=== PATIENT | male | born 1970 | race Caucasian/White ===

== ENCOUNTER 2019-02-15 15:58 | Inpatient (IN) | payer MEDICAID ==
[~2019-02-15] VITALS: Ht 165.1 cm; Wt 65.8 kg
[2019-02-15] MEDS ORDERED: SODIUM CHLORIDE 0.9% 1,000 ML IV ONE (20:35)
[2019-02-15] MEDS ORDERED: MORPHINE SULFATE 4 MG/ML CPJ (NOT FOR IM USE) IV STA (20:35)
[2019-02-15] MEDS ORDERED: ONDANSETRON HCL 4MG/2ML INJ IV STA (20:35)
[2019-02-15] MEDS ORDERED: PIPERACILLIN/TAZ 3.375G PREMIX 50 ML IV NR (20:43)
[2019-02-15] MEDS ORDERED: PIPERACILLIN/TAZOBACTAM 3.375GM/50ML PREMIX IV ONE (20:45)
[2019-02-15] MEDS ORDERED: VANCOMYCIN 1 G PREMIX 200 ML IV SCH (20:45)
[2019-02-15 21:30] LABS: BASOPHILS % 1.5 % (0.0-2.0); EOSINOPHILS % 1.1 % (0.0-5.0); HEMATOCRIT. 37.6 % (42.0-52.0); HEMOGLOBIN. 12.6 g/dL (14.0-18.0); LYMPHOCYTES % 43.2 % (20.0-50.0); MEAN CORPUSCULAR HEMOGLOBIN 30.6 pg (28.0-32.0); MEAN CORPUSCULAR VOLUME 91.3 fL (80.0-94.0); MEAN PLATELET VOLUME 8.1 fl (7.4-10.4); MONOCYTES % 13.9 % (2.0-8.0); NEUTROPHILS % 40.3 % (40.0-76.0); PLATELET 67 x1000/uL (130-400); RED BLOOD CELL COUNT 4.12 mill/uL (4.7-6.1); RED CELL DISTRIBUTION WIDTH 18.4 % (11.6-14.6)
[2019-02-15 21:32] LABS: CHLORIDE 103 mEq/L (98-107)
[2019-02-15] MEDS ORDERED: IBUPROFEN 600MG TABLET PO PRN (22:45)
[2019-02-15] MEDS ORDERED: ONDANSETRON HCL 4MG/2ML INJ IV PRN (23:00)
[2019-02-15] MEDS ORDERED: CLONIDINE 0.1MG TABLET PO PRN (23:00)
[2019-02-15] MEDS ORDERED: LORAZEPAM 2MG/ML CPJ IV PRN (23:00)
[2019-02-15] MEDS ORDERED: MAGNESIUM/ALUMINUM HYDROXIDE/SIMETHICONE 30ML UDC PO PRN (23:00)
[2019-02-15] MEDS ORDERED: ACETAMINOPHEN 325MG TABLET PO PRN (23:00)
[2019-02-15] MEDS ORDERED: DOCUSATE SODIUM 100MG CAPSULE PO PRN (23:00)
[2019-02-15] MEDS ORDERED: IPRATROPIUM/ALBUTEROL 0.5-3(2.5)MG/3ML NEB INH PRN (23:00)
[2019-02-15] MEDS ORDERED: DIPHENHYDRAMINE 50MG/ML VIAL IV PRN (23:00)
[2019-02-15] MEDS ORDERED: PIPERACILLIN/TAZ 3.375G PREMIX 50 ML IV SCH (23:00)
[2019-02-15] MEDS ORDERED: HYDRALAZINE 20MG/ML VIAL IV PRN (23:00)
[2019-02-15] MEDS ORDERED: GUAIFENESIN 200MG/10ML SUGAR FREE UDC PO PRN (23:00)
[2019-02-15] MEDS ORDERED: ENOXAPARIN 40MG/0.4ML SYR SUBCUT SCH (23:00)
[2019-02-15] MEDS ORDERED: IOHEXOL-300 100 ML BOTTLE ONE (23:20)
[2019-02-15 23:33] LABS: CLARITY URINE CLEAR (CLEAR); COLOR URINE YELLOW (YELLOW); KETONES URINE NEGATIVE (NEGATIVE); LEUKOCYTE ESTERASE URINE NEGATIVE (NEGATIVE); NITRITE URINE NEGATIVE (NEGATIVE); OCCULT BLOOD URINE NEGATIVE (NEGATIVE); PROTEIN URINE NEGATIVE (NEGATIVE); SPECIFIC GRAVITY URINE 1.027 (1.005-1.030); UROBILINOGEN URINE 0.2 E.U./dL (0.2-1.0)
[2019-02-15] MEDS ORDERED: HYDROCODONE/ACETAMINOPHEN 10/325MG TABLET PO PRN (23:35)
[2019-02-15] MEDS ORDERED: HYDROMORPHONE HCL/PF 2MG/ML CPJ IV PRN (23:45)
[2019-02-16 00:53] VITALS: BP 133/88
[2019-02-16 04:00] VITALS: BP 126/76
[2019-02-16] MEDS: SODIUM CHLORIDE 0.9% INJ 3ML FLUSH IVF SCH ×3 (06:34→22:00)
[2019-02-16 07:45] LABS: HEMATOCRIT. 34.6 % (42.0-52.0); HEMOGLOBIN. 11.4 g/dL (14.0-18.0); MEAN CORPUSCULAR HEMOGLOBIN 30.3 pg (28.0-32.0); MEAN CORPUSCULAR VOLUME 92.4 fL (80.0-94.0); MEAN PLATELET VOLUME 8.7 fl (7.4-10.4); PLATELET 58 x1000/uL (130-400); RED BLOOD CELL COUNT 3.75 mill/uL (4.7-6.1); RED CELL DISTRIBUTION WIDTH 18.6 % (11.6-14.6)
[2019-02-16 07:58] LABS: CHLORIDE 106 mEq/L (98-107)
[2019-02-16 08:00] VITALS: BP_SYST 124; BP_SYST 138; BP_DIAS 60; BP_DIAS 83
[2019-02-16] MEDS ORDERED: NA PHOS,M-B/NA PHOS,DI-BA ENEMA 118ML PR PRN (09:00)
[2019-02-16] MEDS: VANCOMYCIN 1 G PREMIX 200 ML IV SCH ×2 (09:00→16:50)
[2019-02-16] MEDS: PIPERACILLIN/TAZ 3.375G PREMIX 50 ML IV SCH ×2 (09:19→15:33)
[2019-02-16 09:29] LABS: PLATELET ESTIMATE MARKEDLY DECREASED
[2019-02-16 12:00] VITALS: BP_SYST 128; BP_SYST 139; BP_DIAS 64; BP_DIAS 77
[2019-02-16 16:00] VITALS: BP_SYST 123; BP_SYST 130; BP_DIAS 68; BP_DIAS 77
[2019-02-16 20:00] VITALS: BP 139/80
[2019-02-17] MEDS: PIPERACILLIN/TAZ 3.375G PREMIX 50 ML IV SCH ×3 (00:03→16:56)
[2019-02-17] MEDS: VANCOMYCIN 1 G PREMIX 200 ML IV SCH ×2 (01:08→09:52)
[2019-02-17 04:00] VITALS: BP 128/82
[2019-02-17] MEDS: SODIUM CHLORIDE 0.9% INJ 3ML FLUSH IVF SCH ×3 (06:26→22:08)
[2019-02-17 08:00] VITALS: BP 141/81
[2019-02-17 12:30] VITALS: BP 159/102
[2019-02-17 15:47] VITALS: BP 156/102
[2019-02-17 20:00] VITALS: BP 152/87
[2019-02-17] MEDS: VANCOMYCIN 1250MG in DEXTROSE 5% WATER 250ML IV SCH (22:00)
[2019-02-18] VITALS: BP 129/88
[2019-02-18] MEDS: PIPERACILLIN/TAZ 3.375G PREMIX 50 ML IV SCH ×2 (00:35→08:44)
[2019-02-18 04:00] VITALS: BP 142/90
[2019-02-18] MEDS: SODIUM CHLORIDE 0.9% INJ 3ML FLUSH IVF SCH (05:32)
[2019-02-18 08:00] VITALS: BP_SYST 132; BP_SYST 153; BP_DIAS 102; BP_DIAS 88
[2019-02-18] MEDS: VANCOMYCIN 1250MG in DEXTROSE 5% WATER 250ML IV SCH (09:13)
[2019-02-18 12:00] VITALS: BP 132/88
[2019-02-18 14:01] VITALS: BP 128/78
== END 2019-02-18 14:20 | disposition home or self-care (01) | DRG 501 ==
LOC: ER 15:58 → 6EST 22:37 → EDBEDREQ 22:41 → EDBEDREQTM 22:41 → ENRESERV 23:19
PROVIDERS: ADMIT Internal Medicine; ATTEND Internal Medicine
DX: N49.2 Inflammatory disorders of scrotum (principal); F10.10 Alcohol abuse, uncomplicated; G89.29 Other chronic pain; Z59.0 Homelessness
CPT/HCPCS: 36415; 74177; 80202; 96374; 96375; 99285; J1170; J2270; J2405; J2543; J3370; J7030; J7060; Q9967

== ENCOUNTER 2020-11-08 14:40 | Emergency (ER) | payer MEDICAID ==
[~2020-11-08] VITALS: Ht 177.8 cm; Wt 73.0 kg
[2020-11-08 15:47] LABS: CHLORIDE 97 mEq/L (98-107)
[2020-11-08 16:01] LABS: HEMATOCRIT. 27.2 % (42.0-52.0); HEMOGLOBIN. 8.5 g/dL (14.0-18.0); MEAN CORPUSCULAR HEMOGLOBIN 22.8 pg (28.0-32.0); MEAN CORPUSCULAR VOLUME 73.2 fL (80.0-94.0); MEAN PLATELET VOLUME 8.7 fl (7.4-10.4); PLATELET 290 x1000/uL (130-400); RED BLOOD CELL COUNT 3.72 mill/uL (4.7-6.1); RED CELL DISTRIBUTION WIDTH 19.6 % (11.6-14.6)
[2020-11-08 16:54] LABS: PLATELET ESTIMATE NORMAL
[2020-11-08 23:05] VITALS: BP 139/74
== END 2020-11-08 23:25 | disposition home or self-care (01) ==
LOC: ER 14:40
DX: D64.9 Anemia, unspecified (principal); F10.10 Alcohol abuse, uncomplicated; Y90.9 Presence of alcohol in blood, level not specified
CPT/HCPCS: 36415; 80053; 85025; 93005; 99284

== ENCOUNTER 2024-12-14 08:33 | Emergency (ER) | payer OTHER, MEDICAID ==
[~2024-12-14] VITALS: Ht 157.5 cm; Wt 55.0 kg
[2024-12-14 08:42] VITALS: BP 162/72; PULSE 80; RESP 16; TEMP 36.8; O2SAT 99
[2024-12-14] MEDS: ONDANSETRON 4MG ODT PO ONE (11:33)
== END 2024-12-14 11:45 | disposition home or self-care (01) ==
LOC: ER 08:33
DX: R11.2 Nausea with vomiting, unspecified (principal); Z00.00 Encounter for general adult medical examination without abnormal findings
CPT/HCPCS: 99283; 82962; Q0162

== ENCOUNTER 2024-12-14 18:42 | Emergency (ER) | payer OTHER, MEDICAID ==
[~2024-12-14] VITALS: Ht 167.6 cm; Wt 75.0 kg
[2024-12-14 18:47] VITALS: BP 128/61; PULSE 78; RESP 16; TEMP 36.6; O2SAT 100
== END 2024-12-15 00:33 | disposition home or self-care (01) ==
LOC: ER 18:42
DX: Z13.89 Encounter for screening for other disorder (principal); F10.90 Alcohol use, unspecified, uncomplicated; Z59.02 Unsheltered homelessness; Y90.9 Presence of alcohol in blood, level not specified
CPT/HCPCS: 99283

== ENCOUNTER 2024-12-19 17:53 | Emergency (ER) | payer OTHER, MEDICAID ==
[~2024-12-19] VITALS: Ht 170.2 cm; Wt 63.0 kg
[2024-12-19 17:58] VITALS: O2SAT 98
[2024-12-19] MEDS ORDERED: ACETAMINOPHEN 325MG TABLET PO STA (19:30)
[2024-12-19] MEDS: ACETAMINOPHEN 325MG TABLET PO NR (22:24)
[2024-12-19 22:36] LABS: HEMATOCRIT. 27.7 % (42.0-52.0); HEMOGLOBIN. 8.7 g/dL (14.0-18.0); MEAN CORPUSCULAR HGB CONC 31.5 g/dL (31.0-37.0); MEAN CORPUSCULAR VOLUME 76.1 fL (80.0-94.0); PLATELET 170 x1000/uL (130-400); RED BLOOD CELL COUNT 3.64 mill/uL (4.7-6.1); RED CELL DISTRIBUTION WIDTH 20.5 % (11.6-14.6); WHITE BLOOD COUNT 5.7 x1000/uL (4.5-11.0)
[2024-12-19 22:38] LABS: DIFFERENTIAL COMMENT 1
[2024-12-19 22:43] LABS: CHLORIDE 94 mEq/L (98-107); POTASSIUM 3.6 mEq/L (3.5-5.1); SODIUM 132 mEq/L (136-145)
[2024-12-19 22:44] LABS: CARBON DIOXIDE 30 mEq/L (21-32)
[2024-12-19 22:45] LABS: CALCIUM 9.2 mg/dL (8.7-10.4)
[2024-12-19 22:50] LABS: CREATININE 0.9 mg/dL (0.6-1.3); ETHANOL BLOOD < 10 mg/dL (<10); GLUCOSE 104 mg/dL (70-105); UREA NITROGEN BLOOD 21 mg/dL (9-23)
[2024-12-19 23:33] LABS: ANISOCYTOSIS 2+; HYPOCHROMASIA 1+; MICROCYTOSIS 1+; PLATELET ESTIMATE NORMAL
[2024-12-20] MEDS ORDERED: NAPR-681 MT (00:13)
[2024-12-20 00:29] VITALS: BP 139/71; PULSE 82; RESP 18; TEMP 36.6; O2SAT 100
== END 2024-12-20 00:33 | disposition home or self-care (01) ==
LOC: ER 17:53
DX: M25.551 Pain in right hip (principal); R41.0 Disorientation, unspecified; F10.90 Alcohol use, unspecified, uncomplicated; Z79.1 Long term (current) use of non-steroidal anti-inflammatories (NSAID); Y90.9 Presence of alcohol in blood, level not specified
CPT/HCPCS: 36415; 73502; 80048; 80320; 85025; 99284; G0480